=== PATIENT | female | born 1955 | race Caucasian/White ===

== ENCOUNTER 2019-04-04 21:12 | Emergency (ER) | payer OTHER ==
[~2019-04-04] VITALS: Ht 162.6 cm; Wt 88.9 kg
--- NOTE | 2019-04-04 21:44 | NUR ---
PT BIB FRIEND FROM [place] Y[place] [address]. PT STATES SHE WOKE UP AND WAS DIZZY AND LOST BALANCE AND FELL DOWN THE STAIRS. SHE STATES SHE DID NOT LOSE CONSCIOUSNESS. SHE CURRENTLY STATES SHE HAS PAIN ON HER RIGHT RIB 01/01. PATIENT HAS A RIGHT OCCIPITAL HEMATOMA AND RIGHT RIB CONTUSION. AAOX4. NO SOB. BREATHING EVENLY AND UNLABORED. AMBULATORY. CURRENTLY NOT IN ANY DISTRESS. WILL CONTINUE TO MONITOR.
--- NOTE | 2019-04-04 21:50 | NUR ---
20G IV LAC STARTED. 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 IV INFILTRATED S/P BLOOD DRAW. IV removed. Catheter intact and site benign. Pressure and 4x4 applied to site. No bleeding noted.
--- NOTE | 2019-04-04 21:55 | NUR ---
BLOOD DRAWN AND SENT TO LAB
[2019-04-04 22:07] LABS: BASOPHILS % (AUTO) 0.5 % (0.0-2.0); EOSINOPHILS % (AUTO) 0.9 % (0.0-6.0); HEMATOCRIT 36 % (33-45); HEMOGLOBIN 11.6 g/dL (11.5-14.8); LYMPHOCYTES # (AUTO) 2.8 /CMM (0.8-4.8); LYMPHOCYTES % (AUTO) 47.1 % (20.0-44.0); MEAN CORPUSCULAR HGB CONC 32 g/dl (31.0-36.0); MEAN CORPUSCULAR VOLUME 85 fL (82-100); MONOCYTES # (AUTO) 0.5 /CMM (0.1-1.30); MONOCYTES % (AUTO) 8.9 % (2.0-12.0); NEUTROPHILS # (AUTO) 2.5 /CMM (1.8-8.9); NEUTROPHILS % (AUTO) 42.6 % (43.0-81.0); RED BLOOD CELL COUNT(AUTO) 4.23 MIL/uL (4.0-5.2); WHITE BLOOD COUNT (AUTO) 5.9 K/uL (4.3-11.0)
[2019-04-04 22:09] LABS: PLATELET COUNT (AUTO) 22 /CMM (150-450)
[2019-04-04 22:13] LABS: APPEARANCE,URINE Clear (CLEAR); BILIRUBIN,URINE Negative (NEGATIVE); BLOOD, URINE Trace-lysed Ery/uL (NEGATIVE); COLOR,URINE Yellow (YELLOW); KETONES,URINE Negative (NEGATIVE); LEUKOCYTE ESTERASE ,URINE Negative (NEGATIVE); NITRITE, URINE Negative (NEGATIVE); PH,URINE 5.5 (5.0-8.0); PROTEIN,URINE Negative (NEGATIVE); UGLUCOSE Negative (NEGATIVE); UROBILINOGEN,URINE 0.2 EU/dL (0.2)
--- NOTE | 2019-04-04 22:15 | NUR ---
PT GOING TO CT [facility]IA [facility].
[2019-04-04 22:26] LABS: ALBUMIN 2.8 g/dL (3.4-5.0); BILIRUBIN,TOTAL 0.2 mg/dL (0.2-1.0); CALCIUM, SERUM 9.6 mg/dL (8.5-10.1); CREATININE 0.8 mg/dL (0.6-1.3); POTASSIUM 4.1 mmol/L (3.5-5.1); TOTAL PROTEIN, SERUM 7.3 g/dL (6.4-8.2)
--- NOTE | 2019-04-04 22:27 | NUR ---
PT RETURNED FROM CT.
[2019-04-04 22:40] LABS: LYMPHOCYTES % (MANUAL) 50 % (16-48); NEUTROPHILS % (MANUAL) 42 (42-76)
[2019-04-04 22:41] LABS: MONOCYTES % (MANUAL) 8 % (0-11.0)
[2019-04-04 22:46] LABS: BACTERIA,URINE Rare /HPF (None Seen); SQUAMOUS EPITHELIAL CELL,UR Few /HPF (None Seen); WBC,URINE 0-2 /HPF (0-3)
--- NOTE | 2019-04-04 23:21 | NUR ---
Patient discharged to home in stable condition. Written and verbal after care instructions given. Patient verbalizes understanding of instruction.
[2019-04-04 23:22] VITALS: BP 128/71
== END 2019-04-04 23:22 | disposition home or self-care (01) ==
LOC: ER 21:15
DX: S20.211A Contusion of right front wall of thorax, initial encounter (principal); S30.1XXA Contusion of abdominal wall, initial encounter; D69.6 Thrombocytopenia, unspecified; I10 Essential (primary) hypertension; E11.9 Type 2 diabetes mellitus without complications; G89.29 Other chronic pain; M54.5 Low back pain; R51 Headache; Z98.890 Other specified postprocedural states; W18.39XA Other fall on same level, initial encounter; Y93.89 Activity, other specified; Y92.89 Other specified places as the place of occurrence of the external cause; Y99.8 Other external cause status
CPT/HCPCS: 36415; 70450-TC; 71045-TC; 80048-TC; 80076-TC; 81000-TC; 83690-TC; 85025-TC

== ENCOUNTER 2019-04-12 15:53 | Emergency (ER) | payer OTHER ==
[~2019-04-12] VITALS: Ht 165.1 cm; Wt 88.5 kg
--- NOTE | 2019-04-12 15:53 | NUR ---
"BIB family c/o weak and dizzy, "I'm always sleepy", PT AAOX4, -SOB, NAD NOTED, VSS ,PENDING MD [place]
[2019-04-12 16:30] LABS: BASOPHILS % (AUTO) 0.8 % (0.0-2.0); EOSINOPHILS % (AUTO) 1.7 % (0.0-6.0); HEMATOCRIT 37 % (33-45); HEMOGLOBIN 12.1 g/dL (11.5-14.8); LYMPHOCYTES # (AUTO) 2.4 /CMM (0.8-4.8); LYMPHOCYTES % (AUTO) 38.8 % (20.0-44.0); MEAN CORPUSCULAR HGB CONC 33 g/dl (31.0-36.0); MEAN CORPUSCULAR VOLUME 83 fL (82-100); MONOCYTES # (AUTO) 0.7 /CMM (0.1-1.30); MONOCYTES % (AUTO) 10.6 % (2.0-12.0); NEUTROPHILS % (AUTO) 48.1 % (43.0-81.0); PLATELET COUNT (AUTO) 374 /CMM (150-450); RED BLOOD CELL COUNT(AUTO) 4.42 MIL/uL (4.0-5.2); WHITE BLOOD COUNT (AUTO) 6.2 K/uL (4.3-11.0)
[2019-04-12 17:00] VITALS: BP 159/80
--- NOTE | 2019-04-12 17:23 | NUR ---
Patient discharged to home in stable condition. Written and verbal after care instructions given. Patient verbalizes understanding of instruction.
== END 2019-04-12 17:23 | disposition home or self-care (01) ==
LOC: ER 15:57
DX: R53.1 Weakness (principal); E11.9 Type 2 diabetes mellitus without complications; I10 Essential (primary) hypertension; G89.29 Other chronic pain; Z98.890 Other specified postprocedural states
CPT/HCPCS: 36415; 70450-TC; 85025-TC

== ENCOUNTER 2021-05-08 20:43 | Emergency (ER) | payer OTHER ==
[~2021-05-08] VITALS: Ht 157.5 cm; Wt 86.2 kg
[2021-05-08 21:50] VITALS: BP 190/91
--- NOTE | 2021-05-08 22:05 | NUR ---
PT BIBSELF, AO/X4. MULITPLE WOUNDS ON ABDOMEN AND UPPER THIGH. INITAL WOUND BEGAN 20 DAYS AGO A SMALL, PUS FILLED PIMPLE WHICH ENLARGED TO A 2X4 CM WOUND.
[2021-05-08] MEDS ORDERED: SULF1TAB48 PO (22:38)
[2021-05-08] MEDS ORDERED: CEPH500T PO (22:38)
== END 2021-05-08 22:58 | disposition home or self-care (01) ==
LOC: ER 20:44
DX: L03.311 Cellulitis of abdominal wall (principal)